=== PATIENT | female | born 1980 | race Caucasian/White ===

== ENCOUNTER → 2024-07-01 | Outpatient (CLI) | payer SELFPAY ==
[~2024-07-01] MED LIST: CEFTIN500 MG PO; NORCO 325 MG-51 TAB PO; OMNICEF 300MG300 MG PO; PREMARIN VAG42.5 GM VG; PRENATAL VITAMI1 TA5 PO; PYRIDIUM200 M1 PO; ZITHROMAX Z PA250 MG PO; [UNRECOGNIZED DRUG - OTHER]; [UNRECOGNIZED DRUG - REMARK] OT
== END ==
LOC: MC.RAD 12:49
DX: Z12.31 Encounter for screening mammogram for malignant neoplasm of breast (principal)